=== PATIENT | male | born 1955 | race Caucasian/White ===

== ENCOUNTER 2019-07-21 15:15 | Outpatient (RCR) | payer OTHER, MEDICAID, SELFPAY ==
--- NOTE | 2019-03-18 17:01 | PT.OIE ---
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) Other peripheral vertigo, unspecified ear (03/18/19) Other disorders of vestibular function, left ear (03/18/19) Provider Visit Care Team Role Provider Type Meche Khoury DO Primary Care Provider Non-Staff Specialty: Medical Address: [address] [place] [address], [id number] Email: Paramjit Forrester MD Attending Provider Physician Specialty: Ear, Nose, Throat Address: [address] [place] [address], [id number] Email: Physical Therapy Initial Evaluation PT-OP-A Visit Information Start: 03/18/19 15:32 Freq: Status: Active Protocol: Document 03/18/19 14:30 DCW (Rec: 03/18/19 15:56 DCW [id number]) Out-Patient Physical Therapy Visit Information Visit Information Visit Type Initial Evaluation Visit Start Time 14:30 Visit Stop Time 15:25 Total Visit Minutes 55 Visit Number 1 Number of WEBSITE ADMIN Visits 0 Evaluation Information Evaluation Date 03/18/19 PT-OP-B Current Condition Start: 03/18/19 15:32 Freq: Status: Active Protocol: Document 03/18/19 14:30 DCW (Rec: 03/18/19 15:56 DCW [id number]) Current Condition History of Current Condition Onset Date 07/17/19 Current Complaints Imbalance, Visual instability History of Current Condition Pt is a 63 year old male complaining of an 8 month history of spontaneous vertigo and imbalance. Pt reports that on July 17, he was working on his van, and had a sudden onset of severe rotational vertigo lasting for two full days, including nausea and vomiting. Following this time, he reports the vertigo slowly faded, however now he is unstable, especially when his eye or closed or when he moves his head when he is walking. Pt also complains of oscillopsia when walking down the sidewalk. 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 Pt denies diplopia, dysarthria, discoordination, or decreased mentation/consciousness. Pt reports symptoms are not waxing/waning in nature. Pt denies hx of HTN, hyperlipidemia, diabetes, arrhythmia, seizure, migraines , back/neck problems, CVA, anxiety/panic disorders, depression, or excessive smoking or drinking. Treatment Goals Patient/Caregiver Goals Pt would like to be able to feel more stable when walking. Prior Functional Status Baseline Function- ADL's Independent Baseline Function- Mobility Independent Current Functional Impairments (Reported) Functional Limitations- Mobility/Gait Pt feels near-constant instability and difficulty focusing eyes when up walking around PT-OP-C Subjective Start: 03/18/19 15:32 Freq: Status: Active Protocol: Document 03/18/19 14:30 DCW (Rec: 03/18/19 15:56 DCW [id number]) Patient Questionnaires ABC- Activity Specific Balance Confidence Scale ABC Score 83.13% ABC Functional Impairment 1 to <20% Impaired (Score 81- 99) Dizziness Handicap Inventory DHI Score 64% DHI Functional Impairment 60 to 79% Impaired (Score 60- 79) PT-OP-D Balance Start: 03/18/19 15:32 Freq: Status: Active Protocol: Document 03/18/19 14:30 DCW (Rec: 03/18/19 15:56 DCW [id number]) Balance Tests CTSIB CTSIB Position 1 Mild Sway CTSIB Position 2 Moderate Sway CTSIB Position 3 Moderate Sway CTSIB Position 4 Mild Sway CTSIB Position 5 Moderate Sway CTSIB Position 6 Moderate Sway PT-OP-O Vestibular Start: 03/18/19 15:32 Freq: Status: Active Protocol: Document 03/18/19 14:30 DCW (Rec: 03/18/19 15:56 DCW [id number]) Vestibular Assessment Screening Tests Vestibular Artery Screen Negative Sharp-Denis Test Negative Auditory Tests Trevino Test Negative Rinne Test Negative Air Conduction Results Equal Visual Testing Smooth Pursuits Horizontal Negative Smooth Pursuits Vertical Negative Saccades Horizontal Negative Gaze Evoked Nystagmus With Fixation Negative Gaze Evoked Nystagmus Without Fixation Negative Heave Test Positive Left Thrust Head Positive Left Cristian String Test WNL Convergence Test WNL DVA (Line Degradation) 5 Head Shake +R Vestibular Function Tests Fukuda Test 45? rotation R CTSIB Position 1 Mild Sway CTSIB Position 2 Moderate Sway CTSIB Position 3 Moderate Sway CTSIB Position 4 Mild Sway CTSIB Position 5 Moderate Sway CTSIB Position 6 Moderate Sway PT-OP-Q Treatments Start: 03/18/19 15:32 Freq: Status: Active Protocol: Document 03/18/19 14:30 DCW (Rec: 03/18/19 17:01 DCW [id number]) Neuro Re-Education Treatment Vestibular Rehabilitation Corrective Saccades Distance From Target Arm length Comments deferred to next session secondary to nausea X2 Viewing Distance From Target Arm length Comments deferred to next session secondary to nausea X1 Viewing Distance From Target Arm length Speed as tolerated Position seated VOR Retraining Distance From Target Arm length Speed as tolerated Position seated PT-OP-T Assessment and Plan Start: 03/18/19 15:32 Freq: Status: Active Protocol: Document 03/18/19 14:30 DCW (Rec: 03/18/19 16:59 DCW [id number]) Physical Therapy Assessment Rehab Potential Rehabilitation Potential Good Evaluation Complexity Number of Personal Factors/Comorbidities 3 or More Number of Body Systems Impaired 3 Clinical Presentation at Evaluation Unstable Impairments Impairments Balance Vestibular Goals Four Impairment Pt has a five-line degradation on his Dynamic Visual Acuity Halfway Goal (LTG) Pt to have at most a three- line degradation on his DVA LTG Duration 05/18/19 Three Impairment Pt feels nauseated/dizzy due to bouncing while he is walking Workforce Management Coordinator Goal (LTG) Pt to ambulate 10 blocks without noticeable oscillopsia LTG Duration 05/18/19 Two Impairment Pt scored a 64% disability on the Dizziness Handicapped Inventory Workforce Management Coordinator Goal (LTG) Pt to score <40% disability on DHI LTG Duration 05/18/19 One Impairment Pt does not have an appropriate home exercise program Short Term Goal (STG) Pt to be independent and compliant with an appropriate HEP STG Duration 04/18/19 Assessment Summary Assessment Pt presents with signs and symptoms strongly suggestive of left vestibular neuritis. As he is already eight months out from the original incident, some compensation has already occured, however pt still clearly feels nauseated and imbalanced when performing his VOR and visual- motion exercises. Pt's positive Thrust/Heave, Head Shake, DVA, and Fukuda tests are all suggestive of left hypofunction, and his reports of the original incident are suggestive of either vestibular neuritis or labyrinthitis, however with no severe unilateral auditory loss, VN is more likely. Pt should benefit from vestibular therapy focusing on VOR training, balance training, habituation and adaptation training, and visual tracking exercises. Physical Therapy Plan Frequency and Duration Frequency of Treatment 2x/Week Duration of Treatment 8 weeks Plan of Care Start Date 03/18/19 Plan of Care End Date 05/13/19 Therapeutic Interventions Therapeutic Interventions Balance Training Vestibular Rehabilitation Next Visit Focus/Plan Next Note Type Treatment Note Next Visit Plan VOR training, Balance training , vestibular rehabilitation
--- NOTE | 2019-03-18 17:02 | PT.OPPOC ---
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) Other peripheral vertigo, unspecified ear (03/18/19) Other disorders of vestibular function, left ear (03/18/19) Provider Visit Care Team Role Provider Type Meche Khoury DO Primary Care Provider Non-Staff Specialty: Medical Address: [address] [place] [address], [id number] Email: Paramjit Forrester MD Attending Provider Physician Specialty: Ear, Nose, Throat Address: [address] [place] [address], [id number] Email: Plan Of Care PT-OP-T Assessment and Plan Start: 03/18/19 15:32 Freq: Status: Active Protocol: Document 03/18/19 14:30 DCW (Rec: 03/18/19 16:59 DCW [id number]) Physical Therapy Assessment Rehab Potential Rehabilitation Potential Good Evaluation Complexity Number of Personal Factors/Comorbidities 3 or More Number of Body Systems Impaired 3 Clinical Presentation at Evaluation Unstable Impairments Impairments Balance Vestibular Goals Four Impairment Pt has a five-line degradation on his Dynamic Visual Acuity Milking System Installer Goal (LTG) Pt to have at most a three- line degradation on his DVA LTG Duration 05/18/19 Three Impairment Pt feels nauseated/dizzy due to bouncing while he is walking Milking System Installer Goal (LTG) Pt to ambulate 10 blocks without noticeable oscillopsia LTG Duration 05/18/19 Two Impairment Pt scored a 64% disability on the Dizziness Handicapped Inventory Milking System Installer Goal (LTG) Pt to score <40% disability on DHI LTG Duration 05/18/19 One Impairment Pt does not have an appropriate home exercise program Short Term Goal (STG) Pt to be independent and compliant with an appropriate HEP STG Duration 04/18/19 Assessment Summary Assessment Pt presents with signs and symptoms strongly suggestive of left vestibular neuritis. As he is aloready eight months out from the original incident, some compensation has already occured, however pt still clearly feels nauseated and imbalanced when performing his VOR and visual- motion exercises. Pt's positive Thrust/Heave, Head Shake, DVA, and Fukuda tests are all suggestive of left hypofunction, and his reports of the original incident are suggestive of either vestibular neuritis or labyrinthitis, however with no severe unilateral auditory loss, VN is more likely. Pt should benefit from vestibular therapy focusing on VOR training, balance training, habituation and adaptation training, and visual tracking exercises. Physical Therapy Plan Frequency and Duration Frequency of Treatment 2x/Week Duration of Treatment 8 weeks Plan of Care Start Date 03/18/19 Plan of Care End Date 05/13/19 Therapeutic Interventions Therapeutic Interventions Balance Training Vestibular Rehabilitation Next Visit Focus/Plan Next Note Type Treatment Note Next Visit Plan VOR training, Balance training , vestibular rehabilitation Plan of Care Dates Plan of Care Start Date 03/18/19 Plan of Care End Date 05/13/19 Please Sign and Return: I have reviewed this Plan of Care and certify that the skilled therapy services above are required to meet the patient?s needs. Physician Signature Date Printed Name and Credentials Clinical Instructor Signature Printed Name and Credentials
--- NOTE | 2019-03-23 16:59 | PT.OTN ---
Current Diagnoses Other peripheral vertigo, unspecified ear (03/23/19) Physical Therapy Treatment Note PT-OP-A Visit Information Start: 03/18/19 15:32 Freq: Status: Active Protocol: Document 03/23/19 16:00 DCW (Rec: 03/23/19 16:59 DCW [id number]) Out-Patient Physical Therapy Visit Information Visit Information Visit Type Treatment Note Visit Start Time 16:00 Visit Stop Time 16:45 Total Visit Minutes 45 Visit Number 2 Number of SHOT HOLE SHOOTER Visits 0 Evaluation Information Evaluation Date 03/18/19 PT-OP-B Current Condition Start: 03/18/19 15:32 Freq: Status: Active Protocol: Document 03/18/19 14:30 DCW (Rec: 03/18/19 15:56 DCW [id number]) Current Condition History of Current Condition Onset Date 07/17/19 Current Complaints Imbalance, Visual instability History of Current Condition Pt is a 63 year old male complaining of an 8 month history of spontaneous vertigo and imbalance. Pt reports that on July 17, he was working on his van, and had a sudden onset of severe rotational vertigo lasting for two full days, including nausea and vomiting. Following this time, he reports the vertigo slowly faded, however now he is unstable, especially when his eye or closed or when he moves his head when he is walking. Pt also complains of oscillopsia when walking down the sidewalk. 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 Pt denies diplopia, dysarthria, discoordination, or decreased mentation/consciousness. Pt reports symptoms are not waxing/waning in nature. Pt denies hx of HTN, hyperlipidemia, diabetes, arrhythmia, seizure, migraines , back/neck problems, CVA, anxiety/panic disorders, depression, or excessive smoking or drinking. Treatment Goals Patient/Caregiver Goals Pt would like to be able to feel more stable when walking. Prior Functional Status Baseline Function- ADL's Independent Baseline Function- Mobility Independent Current Functional Impairments (Reported) Functional Limitations- Mobility/Gait Pt feels near-constant instability and difficulty focusing eyes when up walking around PT-OP-C Subjective Start: 03/18/19 15:32 Freq: Status: Active Protocol: Document 03/23/19 16:00 DCW (Rec: 03/23/19 16:59 DCW [id number]) OP-PT Subjective Patient Comments Patient Comments Pt reports he has been having a lot of difficulty performing his HEP, notes he gets very dizzy and nauseated with the X1 viewing. Pt is concerned that some of the dizziness may be coming from his cervical spine. PT-OP-D Balance Start: 03/18/19 15:32 Freq: Status: Active Protocol: Document 03/18/19 14:30 DCW (Rec: 03/18/19 15:56 DCW [id number]) Balance Tests CTSIB CTSIB Position 1 Mild Sway CTSIB Position 2 Moderate Sway CTSIB Position 3 Moderate Sway CTSIB Position 4 Mild Sway CTSIB Position 5 Moderate Sway CTSIB Position 6 Moderate Sway PT-OP-O Vestibular Start: 03/18/19 15:32 Freq: Status: Active Protocol: Document 03/18/19 14:30 DCW (Rec: 03/18/19 15:56 DCW [id number]) Vestibular Assessment Screening Tests Vestibular Artery Screen Negative Sharp-Denis Test Negative Auditory Tests Trevino Test Negative Rinne Test Negative Air Conduction Results Equal Visual Testing Smooth Pursuits Horizontal Negative Smooth Pursuits Vertical Negative Saccades Horizontal Negative Gaze Evoked Nystagmus With Fixation Negative Gaze Evoked Nystagmus Without Fixation Negative Heave Test Positive Left Thrust Head Positive Left Cristian String Test WNL Convergence Test WNL DVA (Line Degradation) 5 Head Shake +R Vestibular Function Tests Fukuda Test 45? rotation R CTSIB Position 1 Mild Sway CTSIB Position 2 Moderate Sway CTSIB Position 3 Moderate Sway CTSIB Position 4 Mild Sway CTSIB Position 5 Moderate Sway CTSIB Position 6 Moderate Sway PT-OP-Q Treatments Start: 03/18/19 15:32 Freq: Status: Active Protocol: Document 03/23/19 16:00 DCW (Rec: 03/23/19 16:59 DCW [id number]) Manual Therapy Treatment Soft Tissue Mobilization SCM Body Location B SCM Mobilization Type Myofascial Release Strumming Body Position Supine Suboccipitals Body Location B Suboccipitals Mobilization Type Strumming Sustained Pressure Body Position Supine Upper Trap Body Location B upper trap Mobilization Type Strain/Counterstrain Strumming Sustained Pressure Trigger Point Release Body Position Supine Joint Mobilizations Cervical Joint C3-7 Direction P->A Grade III Manual Traction Cervical Details Cervical Traction Body Position Supine Neuro Re-Education Treatment Other Activities 1 Details Cervicogenic testing Comments Stool testing, cervical ROM testing PT-OP-T Assessment and Plan Start: 03/18/19 15:32 Freq: Status: Active Protocol: Document 03/23/19 16:00 DCW (Rec: 03/23/19 16:59 DCW [id number]) Physical Therapy Assessment Impairments Impairments Balance Vestibular Goals Four Impairment Pt has a five-line degradation on his Dynamic Visual Acuity Jail Goal (LTG) Pt to have at most a three- line degradation on his DVA LTG Duration 05/18/19 Three Impairment Pt feels nauseated/dizzy due to bouncing while he is walking Jail Goal (LTG) Pt to ambulate 10 blocks without noticeable oscillopsia LTG Duration 05/18/19 Two Impairment Pt scored a 64% disability on the Dizziness Handicapped Inventory Jail Goal (LTG) Pt to score <40% disability on DHI LTG Duration 05/18/19 One Impairment Pt does not have an appropriate home exercise program Short Term Goal (STG) Pt to be independent and compliant with an appropriate HEP STG Duration 04/18/19 Assessment Summary Assessment Treatment focused more today on cervical STM/Manual treatment to try to determine effect of cervical dysfunction on pt's dizziness. Reassess effectiveness of treatment on pt's next visit. Physical Therapy Plan Frequency and Duration Frequency of Treatment 2x/Week Duration of Treatment 8 weeks Plan of Care Start Date 03/18/19 Plan of Care End Date 05/13/19 Therapeutic Interventions Therapeutic Interventions Balance Training Vestibular Rehabilitation Next Visit Focus/Plan Next Note Type Treatment Note Next Visit Plan VOR training, Balance training , vestibular rehabilitation, assess effectiveness of cervical manual treatment
--- NOTE | 2019-04-22 16:09 | PT.OTN ---
Current Diagnoses Other peripheral vertigo, unspecified ear (04/22/19) Physical Therapy Treatment Note PT-OP-A Visit Information Start: 03/18/19 15:32 Freq: Status: Active Protocol: Document 04/22/19 15:15 DCW (Rec: 04/22/19 16:09 DCW [id number]) Out-Patient Physical Therapy Visit Information Visit Information Visit Type Treatment Note Visit Start Time 15:15 Visit Stop Time 16:00 Total Visit Minutes 45 Visit Number 3 Number of DIGESTER OPERATOR Visits 0 Evaluation Information Evaluation Date 03/18/19 PT-OP-B Current Condition Start: 03/18/19 15:32 Freq: Status: Active Protocol: Document 03/18/19 14:30 DCW (Rec: 03/18/19 15:56 DCW [id number]) Current Condition History of Current Condition Onset Date 07/17/19 Current Complaints Imbalance, Visual instability History of Current Condition Pt is a 63 year old male complaining of an 8 month history of spontaneous vertigo and imbalance. Pt reports that on July 17, he was working on his van, and had a sudden onset of severe rotational vertigo lasting for two full days, including nausea and vomiting. Following this time, he reports the vertigo slowly faded, however now he is unstable, especially when his eye or closed or when he moves his head when he is walking. Pt also complains of oscillopsia when walking down the sidewalk. 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 Pt denies diplopia, dysarthria, discoordination, or decreased mentation/consciousness. Pt reports symptoms are not waxing/waning in nature. Pt denies hx of HTN, hyperlipidemia, diabetes, arrhythmia, seizure, migraines , back/neck problems, CVA, anxiety/panic disorders, depression, or excessive smoking or drinking. Treatment Goals Patient/Caregiver Goals Pt would like to be able to feel more stable when walking. 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 PT-OP-D Balance Start: 03/18/19 15:32 Freq: Status: Active Protocol: Document 03/18/19 14:30 DCW (Rec: 03/18/19 15:56 DCW [id number]) Balance Tests CTSIB CTSIB Position 1 Mild Sway CTSIB Position 2 Moderate Sway CTSIB Position 3 Moderate Sway CTSIB Position 4 Mild Sway CTSIB Position 5 Moderate Sway CTSIB Position 6 Moderate Sway PT-OP-O Vestibular Start: 03/18/19 15:32 Freq: Status: Active Protocol: Document 03/18/19 14:30 DCW (Rec: 03/18/19 15:56 DCW [id number]) Vestibular Assessment Screening Tests Vestibular Artery Screen Negative Sharp-Denis Test Negative Auditory Tests Trevino Test Negative Rinne Test Negative Air Conduction Results Equal Visual Testing Smooth Pursuits Horizontal Negative Smooth Pursuits Vertical Negative Saccades Horizontal Negative Gaze Evoked Nystagmus With Fixation Negative Gaze Evoked Nystagmus Without Fixation Negative Heave Test Positive Left Thrust Head Positive Left Cristian String Test WNL Convergence Test WNL DVA (Line Degradation) 5 Head Shake +R Vestibular Function Tests Fukuda Test 45? rotation R CTSIB Position 1 Mild Sway CTSIB Position 2 Moderate Sway CTSIB Position 3 Moderate Sway CTSIB Position 4 Mild Sway CTSIB Position 5 Moderate Sway CTSIB Position 6 Moderate Sway PT-OP-Q Treatments Start: 03/18/19 15:32 Freq: Status: Active Protocol: Document 04/22/19 15:15 DCW (Rec: 04/22/19 16:09 DCW [id number]) Manual Therapy Treatment Soft Tissue Mobilization SCM Body Location B SCM Mobilization Type Myofascial Release Strumming Body Position Supine Suboccipitals Body Location B Suboccipitals Mobilization Type Strumming Sustained Pressure Body Position Supine Upper Trap Body Location B upper trap Mobilization Type Strain/Counterstrain Strumming Sustained Pressure Trigger Point Release Body Position Supine Joint Mobilizations Cervical Joint C3-7 Direction P->A Grade III Manual Traction Cervical Details Cervical Traction Body Position Supine PT-OP-T Assessment and Plan Start: 03/18/19 15:32 Freq: Status: Active Protocol: Document 04/22/19 15:15 DCW (Rec: 04/22/19 16:09 DCW [id number]) Physical Therapy Assessment Impairments Impairments Balance Vestibular Goals Four Impairment Pt has a five-line degradation on his Dynamic Visual Acuity Legal Assistant Goal (LTG) Pt to have at most a three- line degradation on his DVA LTG Duration 05/18/19 Three Impairment Pt feels nauseated/dizzy due to bouncing while he is walking Legal Assistant Goal (LTG) Pt to ambulate 10 blocks without noticeable oscillopsia LTG Duration 05/18/19 Two Impairment Pt scored a 64% disability on the Dizziness Handicapped Inventory Custodial Goal (LTG) Pt to score <40% disability on DHI LTG Duration 05/18/19 One Impairment Pt does not have an appropriate home exercise program Short Term Goal (STG) Pt to be independent and compliant with an appropriate HEP STG Duration 04/18/19 Assessment Summary Assessment Pt reported feeling much better for 5-6 days following his last appointment, and therefore focus today was again on manual therapy of the cervical spine. Pt continues to have difficulty tolerating X1/X2 viewing without causing nausea. Physical Therapy Plan Frequency and Duration Frequency of Treatment 2x/Week Duration of Treatment 8 weeks Plan of Care Start Date 03/18/19 Plan of Care End Date 05/13/19 Therapeutic Interventions Therapeutic Interventions Balance Training Vestibular Rehabilitation Next Visit Focus/Plan Next Note Type Treatment Note Next Visit Plan VOR training, Balance training , vestibular rehabilitation, assess effectiveness of cervical manual treatment
--- NOTE | 2019-04-27 16:47 | PT.OTN ---
Current Diagnoses Other peripheral vertigo, unspecified ear (04/27/19) Physical Therapy Treatment Note PT-OP-A Visit Information Start: 03/18/19 15:32 Freq: Status: Active Protocol: Document 04/27/19 16:00 DCW (Rec: 04/27/19 16:46 DCW [id number]) Out-Patient Physical Therapy Visit Information Visit Information Visit Type Treatment Note Visit Start Time 16:00 Visit Stop Time 16:45 Total Visit Minutes 45 Visit Number 4 Number of GREENHOUSE SUPERINTENDENT Visits 0 Evaluation Information Evaluation Date 03/18/19 PT-OP-B Current Condition Start: 03/18/19 15:32 Freq: Status: Active Protocol: Document 03/18/19 14:30 DCW (Rec: 03/18/19 15:56 DCW [id number]) Current Condition History of Current Condition Onset Date 07/17/19 Current Complaints Imbalance, Visual instability History of Current Condition Pt is a 63 year old male complaining of an 8 month history of spontaneous vertigo and imbalance. Pt reports that on July 17, he was working on his van, and had a sudden onset of severe rotational vertigo lasting for two full days, including nausea and vomiting. Following this time, he reports the vertigo slowly faded, however now he is unstable, especially when his eye or closed or when he moves his head when he is walking. Pt also complains of oscillopsia when walking down the sidewalk. 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 Pt denies diplopia, dysarthria, discoordination, or decreased mentation/consciousness. Pt reports symptoms are not waxing/waning in nature. Pt denies hx of HTN, hyperlipidemia, diabetes, arrhythmia, seizure, migraines , back/neck problems, CVA, anxiety/panic disorders, depression, or excessive smoking or drinking. Treatment Goals Patient/Caregiver Goals Pt would like to be able to feel more stable when walking. Prior Functional Status Baseline Function- ADL's Independent Baseline Function- Mobility Independent Current Functional Impairments (Reported) Functional Limitations- Mobility/Gait Pt feels near-constant instability and difficulty focusing eyes when up walking around PT-OP-C Subjective Start: 03/18/19 15:32 Freq: Status: Active Protocol: Document 04/27/19 16:00 DCW (Rec: 04/27/19 16:46 DCW [id number]) OP-PT Subjective Patient Comments Patient Comments Pt reports that he did not feel as much benefit from the last session compared to the first time he had his neck worked on, but he did still notice some improvement. PT-OP-D Balance Start: 03/18/19 15:32 Freq: Status: Active Protocol: Document 03/18/19 14:30 DCW (Rec: 03/18/19 15:56 DCW [id number]) Balance Tests CTSIB CTSIB Position 1 Mild Sway CTSIB Position 2 Moderate Sway CTSIB Position 3 Moderate Sway CTSIB Position 4 Mild Sway CTSIB Position 5 Moderate Sway CTSIB Position 6 Moderate Sway PT-OP-O Vestibular Start: 03/18/19 15:32 Freq: Status: Active Protocol: Document 03/18/19 14:30 DCW (Rec: 03/18/19 15:56 DCW [id number]) Vestibular Assessment Screening Tests Vestibular Artery Screen Negative Sharp-Denis Test Negative Auditory Tests Trevino Test Negative Rinne Test Negative Air Conduction Results Equal Visual Testing Smooth Pursuits Horizontal Negative Smooth Pursuits Vertical Negative Saccades Horizontal Negative Gaze Evoked Nystagmus With Fixation Negative Gaze Evoked Nystagmus Without Fixation Negative Heave Test Positive Left Thrust Head Positive Left Cristian String Test WNL Convergence Test WNL DVA (Line Degradation) 5 Head Shake +R Vestibular Function Tests Fukuda Test 45? rotation R CTSIB Position 1 Mild Sway CTSIB Position 2 Moderate Sway CTSIB Position 3 Moderate Sway CTSIB Position 4 Mild Sway CTSIB Position 5 Moderate Sway CTSIB Position 6 Moderate Sway PT-OP-Q Treatments Start: 03/18/19 15:32 Freq: Status: Active Protocol: Document 04/27/19 16:00 DCW (Rec: 04/27/19 16:46 DCW [id number]) Manual Therapy Treatment Soft Tissue Mobilization SCM Body Location B SCM Mobilization Type Myofascial Release Strumming Body Position Supine Suboccipitals Body Location B Suboccipitals Mobilization Type Strumming Sustained Pressure Body Position Supine Upper Trap Body Location B upper trap Mobilization Type Strain/Counterstrain Strumming Sustained Pressure Trigger Point Release Body Position Supine Joint Mobilizations Cervical Joint C3-7 Direction P->A Grade III Manual Traction Cervical Details Cervical Traction Body Position Supine PT-OP-T Assessment and Plan Start: 03/18/19 15:32 Freq: Status: Active Protocol: Document 04/27/19 16:00 DCW (Rec: 04/27/19 16:46 DCW [id number]) Physical Therapy Assessment Impairments Impairments Balance Vestibular Goals Four Impairment Pt has a five-line degradation on his Dynamic Visual Acuity It Consultant Goal (LTG) Pt to have at most a three- line degradation on his DVA LTG Duration 05/18/19 Three Impairment Pt feels nauseated/dizzy due to bouncing while he is walking [facility] Goal (LTG) Pt to ambulate 10 blocks without noticeable oscillopsia LTG Duration 05/18/19 Two Impairment Pt scored a 64% disability on the Dizziness Handicapped Inventory It Consultant Goal (LTG) Pt to score <40% disability on DHI LTG Duration 05/18/19 One Impairment Pt does not have an appropriate home exercise program Short Term Goal (STG) Pt to be independent and compliant with an appropriate HEP STG Duration 04/18/19 Assessment Summary Assessment Pt still unable to tolerate X1 /X2 viewing due to nausea, but feels continued cervical STM will help him tolerate more activity. Physical Therapy Plan Frequency and Duration Frequency of Treatment 2x/Week Duration of Treatment 8 weeks Plan of Care Start Date 03/18/19 Plan of Care End Date 05/13/19 Therapeutic Interventions Therapeutic Interventions Balance Training Vestibular Rehabilitation Next Visit Focus/Plan Next Note Type Treatment Note Next Visit Plan VOR training, Balance training , vestibular rehabilitation, assess effectiveness of cervical manual treatment
--- NOTE | 2019-05-04 11:16 | PT.OTN ---
Current Diagnoses Other peripheral vertigo, unspecified ear (05/04/19) Physical Therapy Treatment Note PT-OP-A Visit Information Start: 03/18/19 15:32 Freq: Status: Active Protocol: Document 05/04/19 10:30 DCW (Rec: 05/04/19 11:16 DCW [id number]) Out-Patient Physical Therapy Visit Information Visit Information Visit Type Treatment Note Visit Start Time 10:30 Visit Stop Time 11:15 Total Visit Minutes 45 Visit Number 5 Number of MANAGER CENTER Visits 0 Evaluation Information Evaluation Date 03/18/19 PT-OP-B Current Condition Start: 03/18/19 15:32 Freq: Status: Active Protocol: Document 03/18/19 14:30 DCW (Rec: 03/18/19 15:56 DCW [id number]) Current Condition History of Current Condition Onset Date 07/17/19 Current Complaints Imbalance, Visual instability History of Current Condition Pt is a 63 year old male complaining of an 8 month history of spontaneous vertigo and imbalance. Pt reports that on July 17, he was working on his van, and had a sudden onset of severe rotational vertigo lasting for two full days, including nausea and vomiting. Following this time, he reports the vertigo slowly faded, however now he is unstable, especially when his eye or closed or when he moves his head when he is walking. Pt also complains of oscillopsia when walking down the sidewalk. 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 Pt denies diplopia, dysarthria, discoordination, or decreased mentation/consciousness. Pt reports symptoms are not waxing/waning in nature. Pt denies hx of HTN, hyperlipidemia, diabetes, arrhythmia, seizure, migraines , back/neck problems, CVA, anxiety/panic disorders, depression, or excessive smoking or drinking. Treatment Goals Patient/Caregiver Goals Pt would like to be able to feel more stable when walking. Prior Functional Status Baseline Function- ADL's Independent Baseline Function- Mobility Independent Current Functional Impairments (Reported) Functional Limitations- Mobility/Gait Pt feels near-constant instability and difficulty focusing eyes when up walking around PT-OP-C Subjective Start: 03/18/19 15:32 Freq: Status: Active Protocol: Document 05/04/19 10:30 DCW (Rec: 05/04/19 11:16 DCW [id number]) OP-PT Subjective Patient Comments Patient Comments Pt reports that the past few nights, he has been having some pain in his C1 or C2, I don't know which it is, but I think that's where my issues are coming from. PT-OP-D Balance Start: 03/18/19 15:32 Freq: Status: Active Protocol: Document 03/18/19 14:30 DCW (Rec: 03/18/19 15:56 DCW [id number]) Balance Tests CTSIB CTSIB Position 1 Mild Sway CTSIB Position 2 Moderate Sway CTSIB Position 3 Moderate Sway CTSIB Position 4 Mild Sway CTSIB Position 5 Moderate Sway CTSIB Position 6 Moderate Sway PT-OP-O Vestibular Start: 03/18/19 15:32 Freq: Status: Active Protocol: Document 03/18/19 14:30 DCW (Rec: 03/18/19 15:56 DCW [id number]) Vestibular Assessment Screening Tests Vestibular Artery Screen Negative Sharp-Denis Test Negative Auditory Tests Trevino Test Negative Rinne Test Negative Air Conduction Results Equal Visual Testing Smooth Pursuits Horizontal Negative Smooth Pursuits Vertical Negative Saccades Horizontal Negative Gaze Evoked Nystagmus With Fixation Negative Gaze Evoked Nystagmus Without Fixation Negative Heave Test Positive Left Thrust Head Positive Left Cristian String Test WNL Convergence Test WNL DVA (Line Degradation) 5 Head Shake +R Vestibular Function Tests Fukuda Test 45? rotation R CTSIB Position 1 Mild Sway CTSIB Position 2 Moderate Sway CTSIB Position 3 Moderate Sway CTSIB Position 4 Mild Sway CTSIB Position 5 Moderate Sway CTSIB Position 6 Moderate Sway PT-OP-Q Treatments Start: 03/18/19 15:32 Freq: Status: Active Protocol: Document 05/04/19 10:30 DCW (Rec: 05/04/19 11:16 DCW [id number]) Manual Therapy Treatment Soft Tissue Mobilization SCM Body Location B SCM Mobilization Type Myofascial Release Strumming Body Position Supine Suboccipitals Body Location B Suboccipitals Mobilization Type Strumming Sustained Pressure Body Position Supine Upper Trap Body Location B upper trap Mobilization Type Strain/Counterstrain Strumming Sustained Pressure Trigger Point Release Body Position Supine Joint Mobilizations C2 Rotation Joint C2 Direction Counterclockwise rotation Comments Resisted rotation Cervical Joint C3-7 Direction P->A Grade III Manual Traction Cervical Details Cervical Traction Body Position Supine PT-OP-T Assessment and Plan Start: 03/18/19 15:32 Freq: Status: Active Protocol: Document 05/04/19 10:30 DCW (Rec: 05/04/19 11:16 DCW [id number]) Physical Therapy Assessment Impairments Impairments Balance Vestibular Goals Four Impairment Pt has a five-line degradation on his Dynamic Visual Acuity Head Bone Grinder Goal (LTG) Pt to have at most a three- line degradation on his DVA LTG Duration 05/18/19 Three Impairment Pt feels nauseated/dizzy due to bouncing while he is walking Halfway Goal (LTG) Pt to ambulate 10 blocks without noticeable oscillopsia LTG Duration 05/18/19 Two Impairment Pt scored a 64% disability on the Dizziness Handicapped Inventory Head Bone Grinder Goal (LTG) Pt to score <40% disability on DHI LTG Duration 05/18/19 One Impairment Pt does not have an appropriate home exercise program Short Term Goal (STG) Pt to be independent and compliant with an appropriate HEP STG Duration 04/18/19 Assessment Summary Assessment Pt tolerated treatment well, appeared to respond well to rotation of C2. Physical Therapy Plan Frequency and Duration Frequency of Treatment 2x/Week Duration of Treatment 8 weeks Plan of Care Start Date 03/18/19 Plan of Care End Date 05/13/19 Therapeutic Interventions Therapeutic Interventions Balance Training Vestibular Rehabilitation Next Visit Focus/Plan Next Note Type Treatment Note Next Visit Plan VOR training, Balance training , vestibular rehabilitation, assess effectiveness of cervical manual treatment
--- NOTE | 2019-05-09 13:50 | PT.OTN ---
Current Diagnoses Other peripheral vertigo, unspecified ear (05/09/19) Physical Therapy Treatment Note PT-OP-A Visit Information Start: 03/18/19 15:32 Freq: Status: Active Protocol: Document 05/09/19 11:15 DCW (Rec: 05/09/19 13:50 DCW [id number]) Out-Patient Physical Therapy Visit Information Visit Information Visit Type Treatment Note Visit Start Time 11:15 Visit Stop Time 12:00 Total Visit Minutes 45 Visit Number 6 Number of MAINTENANCE PLUMBER Visits 0 Evaluation Information Evaluation Date 03/18/19 PT-OP-B Current Condition Start: 03/18/19 15:32 Freq: Status: Active Protocol: Document 03/18/19 14:30 DCW (Rec: 03/18/19 15:56 DCW [id number]) Current Condition History of Current Condition Onset Date 07/17/19 Current Complaints Imbalance, Visual instability History of Current Condition Pt is a 63 year old male complaining of an 8 month history of spontaneous vertigo and imbalance. Pt reports that on July 17, he was working on his van, and had a sudden onset of severe rotational vertigo lasting for two full days, including nausea and vomiting. Following this time, he reports the vertigo slowly faded, however now he is unstable, especially when his eye or closed or when he moves his head when he is walking. Pt also complains of oscillopsia when walking down the sidewalk. 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 Pt denies diplopia, dysarthria, discoordination, or decreased mentation/consciousness. Pt reports symptoms are not waxing/waning in nature. Pt denies hx of HTN, hyperlipidemia, diabetes, arrhythmia, seizure, migraines , back/neck problems, CVA, anxiety/panic disorders, depression, or excessive smoking or drinking. Treatment Goals Patient/Caregiver Goals Pt would like to be able to feel more stable when walking. Prior Functional Status Baseline Function- ADL's Independent Baseline Function- Mobility Independent Current Functional Impairments (Reported) Functional Limitations- Mobility/Gait Pt feels near-constant instability and difficulty focusing eyes when up walking around PT-OP-C Subjective Start: 03/18/19 15:32 Freq: Status: Active Protocol: Document 05/09/19 11:15 DCW (Rec: 05/09/19 13:50 DCW [id number]) OP-PT Subjective Patient Comments Patient Comments Pt presents today with complaints of pain in the T3 area, as well as continuing dizziness. PT-OP-D Balance Start: 03/18/19 15:32 Freq: Status: Active Protocol: Document 03/18/19 14:30 DCW (Rec: 03/18/19 15:56 DCW [id number]) Balance Tests CTSIB CTSIB Position 1 Mild Sway CTSIB Position 2 Moderate Sway CTSIB Position 3 Moderate Sway CTSIB Position 4 Mild Sway CTSIB Position 5 Moderate Sway CTSIB Position 6 Moderate Sway PT-OP-O Vestibular Start: 03/18/19 15:32 Freq: Status: Active Protocol: Document 03/18/19 14:30 DCW (Rec: 03/18/19 15:56 DCW [id number]) Vestibular Assessment Screening Tests Vestibular Artery Screen Negative Sharp-Denis Test Negative Auditory Tests Trevino Test Negative Rinne Test Negative Air Conduction Results Equal Visual Testing Smooth Pursuits Horizontal Negative Smooth Pursuits Vertical Negative Saccades Horizontal Negative Gaze Evoked Nystagmus With Fixation Negative Gaze Evoked Nystagmus Without Fixation Negative Heave Test Positive Left Thrust Head Positive Left Cristian String Test WNL Convergence Test WNL DVA (Line Degradation) 5 Head Shake +R Vestibular Function Tests Fukuda Test 45? rotation R CTSIB Position 1 Mild Sway CTSIB Position 2 Moderate Sway CTSIB Position 3 Moderate Sway CTSIB Position 4 Mild Sway CTSIB Position 5 Moderate Sway CTSIB Position 6 Moderate Sway PT-OP-Q Treatments Start: 03/18/19 15:32 Freq: Status: Active Protocol: Document 05/09/19 11:15 DCW (Rec: 05/09/19 13:50 DCW [id number]) Therapeutic Exercises Supine Exercises Supine chin tuck/head lift Supine Exercise Name Chin tuck/head lift Sitting Exercises Chin Tucks Sitting Exercise Name Chin tuck Upper Trap stretch Sitting Exercise Name UT stretch Side bilateral Manual Therapy Treatment Soft Tissue Mobilization SCM Body Location B SCM Mobilization Type Myofascial Release Strumming Body Position Supine Suboccipitals Body Location B Suboccipitals Mobilization Type Strumming Sustained Pressure Body Position Supine Upper Trap Body Location B upper trap Mobilization Type Strain/Counterstrain Strumming Sustained Pressure Trigger Point Release Body Position Supine Joint Mobilizations Cervical Joint C3-7 Direction P->A Grade III Manual Traction Cervical Details Cervical Traction Body Position Supine PT-OP-T Assessment and Plan Start: 03/18/19 15:32 Freq: Status: Active Protocol: Document 05/09/19 11:15 DCW (Rec: 05/09/19 13:50 DCW [id number]) Physical Therapy Assessment Impairments Impairments Balance Vestibular Goals Four Impairment Pt has a five-line degradation on his Dynamic Visual Acuity Purchase Request Editor Goal (LTG) Pt to have at most a three- line degradation on his DVA LTG Duration 05/18/19 Three Impairment Pt feels nauseated/dizzy due to bouncing while he is walking [facility] Goal (LTG) Pt to ambulate 10 blocks without noticeable oscillopsia LTG Duration 05/18/19 Two Impairment Pt scored a 64% disability on the Dizziness Handicapped Inventory [facility] Goal (LTG) Pt to score <40% disability on DHI LTG Duration 05/18/19 One Impairment Pt does not have an appropriate home exercise program Short Term Goal (STG) Pt to be independent and compliant with an appropriate HEP STG Duration 04/18/19 Assessment Summary Assessment Pt overall has not experienced much improvement in his subjective complaints of dizziness. Admits that he has not been following through with HEP, due to it making him feel sick. Physical Therapy Plan Frequency and Duration Frequency of Treatment 2x/Week Duration of Treatment 8 weeks Plan of Care Start Date 03/18/19 Plan of Care End Date 05/13/19 Therapeutic Interventions Therapeutic Interventions Balance Training Vestibular Rehabilitation Next Visit Focus/Plan Next Note Type Treatment Note Next Visit Plan VOR training, Balance training , vestibular rehabilitation, assess effectiveness of cervical manual treatment
--- NOTE | 2019-05-30 17:44 | PT.OTN ---
Current Diagnoses Other peripheral vertigo, unspecified ear (05/30/19) Physical Therapy Treatment Note PT-OP-A Visit Information Start: 03/18/19 15:32 Freq: Status: Active Protocol: Document 05/30/19 14:30 DCW (Rec: 05/30/19 17:44 DCW [id number]) Out-Patient Physical Therapy Visit Information Visit Information Visit Type Progress Note Visit Start Time 14:30 Visit Stop Time 15:15 Total Visit Minutes 45 Visit Number 7 Number of HOSPITAL CLERK Visits 0 Evaluation Information Evaluation Date 03/18/19 PT-OP-B Current Condition Start: 03/18/19 15:32 Freq: Status: Active Protocol: Document 03/18/19 14:30 DCW (Rec: 03/18/19 15:56 DCW [id number]) Current Condition History of Current Condition Onset Date 07/17/19 Current Complaints Imbalance, Visual instability History of Current Condition Pt is a 63 year old male complaining of an 8 month history of spontaneous vertigo and imbalance. Pt reports that on July 17, he was working on his van, and had a sudden onset of severe rotational vertigo lasting for two full days, including nausea and vomiting. Following this time, he reports the vertigo slowly faded, however now he is unstable, especially when his eye or closed or when he moves his head when he is walking. Pt also complains of oscillopsia when walking down the sidewalk. 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 Pt denies diplopia, dysarthria, discoordination, or decreased mentation/consciousness. Pt reports symptoms are not waxing/waning in nature. Pt denies hx of HTN, hyperlipidemia, diabetes, arrhythmia, seizure, migraines , back/neck problems, CVA, anxiety/panic disorders, depression, or excessive smoking or drinking. Treatment Goals Patient/Caregiver Goals Pt would like to be able to feel more stable when walking. Prior Functional Status Baseline Function- ADL's Independent Baseline Function- Mobility Independent Current Functional Impairments (Reported) Functional Limitations- Mobility/Gait Pt feels near-constant instability and difficulty focusing eyes when up walking around PT-OP-C Subjective Start: 03/18/19 15:32 Freq: Status: Active Protocol: Document 05/30/19 14:30 DCW (Rec: 05/30/19 17:44 DCW [id number]) OP-PT Subjective Patient Comments Patient Comments Pt reports he would like to discuss the possibility of a cardiac referral with his PCP, because he read that some dizziness and fatigue can be caused by cardiac issues. PT-OP-D Balance Start: 03/18/19 15:32 Freq: Status: Active Protocol: Document 05/30/19 14:30 DCW (Rec: 05/30/19 14:56 DCW [id number]) Balance Tests CTSIB CTSIB Position 1 Mild Sway CTSIB Position 2 Mild Sway CTSIB Position 3 Mild Sway CTSIB Position 4 Mild Sway CTSIB Position 5 Moderate Sway CTSIB Position 6 Mild Sway PT-OP-F Manual Assessment Start: 05/30/19 14:57 Freq: Status: Active Protocol: Document 05/30/19 14:30 DCW (Rec: 05/30/19 15:13 DCW [id number]) Manual Assessments Soft Tissue Assessment Soft Tissue Mobility Assessment Moderate tone along R upper trap and scalenes, bilateral suboccipitals Joint Mobility Assessment Joint Mobility Assessment Moderate limitations to cervical ROM, extension 32 degrees, rotation bilaterally 52 degrees Tenderness along C4 PT-OP-O Vestibular Start: 03/18/19 15:32 Freq: Status: Active Protocol: Document 05/30/19 14:30 DCW (Rec: 05/30/19 14:56 DCW [id number]) Vestibular Assessment Visual Testing Heave Test Positive Left Thrust Head Positive Left DVA (Line Degradation) 4 Vestibular Function Tests CTSIB Position 1 Mild Sway CTSIB Position 2 Mild Sway CTSIB Position 3 Mild Sway CTSIB Position 4 Mild Sway CTSIB Position 5 Moderate Sway CTSIB Position 6 Mild Sway PT-OP-Q Treatments Start: 03/18/19 15:32 Freq: Status: Active Protocol: Document 05/30/19 14:30 DCW (Rec: 05/30/19 17:44 DCW [id number]) Manual Therapy Treatment Soft Tissue Mobilization SCM Body Location B SCM Mobilization Type Myofascial Release Strumming Body Position Supine Suboccipitals Body Location B Suboccipitals Mobilization Type Strumming Sustained Pressure Body Position Supine Upper Trap Body Location B upper trap Mobilization Type Strain/Counterstrain Strumming Sustained Pressure Trigger Point Release Body Position Supine Joint Mobilizations Cervical Joint C3-7 Direction P->A Grade III Manual Traction Cervical Details Cervical Traction Body Position Supine Neuro Re-Education Treatment Other Activities 1 Comments Vestibular/Balance testing PT-OP-T Assessment and Plan Start: 03/18/19 15:32 Freq: Status: Active Protocol: Document 05/30/19 14:30 DCW (Rec: 05/30/19 17:44 DCW [id number]) Physical Therapy Assessment Impairments Impairments Balance Vestibular Goals Four Impairment Pt has a five-line degradation on his Dynamic Visual Acuity Data Officer Goal (LTG) Pt to have at most a three- line degradation on his DVA LTG Duration 07/31/19 - Improving Three Impairment Pt feels nauseated/dizzy due to bouncing while he is walking Snf Goal (LTG) Pt to ambulate 10 blocks without noticeable oscillopsia LTG Duration 07/31/19 Two Impairment Pt scored a 64% disability on the Dizziness Handicapped Inventory Data Officer Goal (LTG) Pt to score <40% disability on DHI LTG Duration 07/31/19 One Impairment Pt does not have an appropriate home exercise program Short Term Goal (STG) Pt to be independent and compliant with an appropriate HEP STG Duration 07/31/19 Assessment Summary Assessment Pt's progress is difficult to properly chart, as most of his symptoms are subjective in nature and are not apparent in testing for the most part. Pt does demonstrate improvement in positions II, III, and of the CTSIB, and now has a DVA of negative 4 lines instead of negative 3. Pt does appear to respond well following manual cervical treatment, which may suggest cervicogenic causes of his vertigo. Recommend one more renewal of his POC to continue to track progress. If pt plateau is noted, pt will likely then discharge at that time. Physical Therapy Plan Frequency and Duration Frequency of Treatment 2x/Week Duration of Treatment 8 weeks Plan of Care Start Date 05/30/19 Plan of Care End Date 07/25/19 Therapeutic Interventions Therapeutic Interventions Balance Training Manual Therapy Soft Tissue Mobilization Vestibular Rehabilitation Next Visit Focus/Plan Next Note Type Treatment Note Next Visit Plan VOR training, Balance training , vestibular rehabilitation, assess effectiveness of cervical manual treatment
--- NOTE | 2019-05-30 17:44 | PT.OPPOC ---
Current Diagnoses Other peripheral vertigo, unspecified ear (05/30/19) Provider Visit Care Team Role Provider Type Meche Khoury DO Primary Care Provider Non-Staff Specialty: Medical Address: [address] [place] [address], [id number] Email: Paramjit Forrester MD Attending Provider Physician Specialty: Ear, Nose, Throat Address: [address] [place] [address], [id number] Email: Plan Of Care PT-OP-T Assessment and Plan Start: 03/18/19 15:32 Freq: Status: Active Protocol: Document 05/30/19 14:30 DCW (Rec: 05/30/19 17:44 DCW [id number]) Physical Therapy Assessment Impairments Impairments Balance Vestibular Goals Four Impairment Pt has a five-line degradation on his Dynamic Visual Acuity Care Home Goal (LTG) Pt to have at most a three- line degradation on his DVA LTG Duration 07/31/19 - Improving Three Impairment Pt feels nauseated/dizzy due to bouncing while he is walking Care Home Goal (LTG) Pt to ambulate 10 blocks without noticeable oscillopsia LTG Duration 07/31/19 Two Impairment Pt scored a 64% disability on the Dizziness Handicapped Inventory Care Home Goal (LTG) Pt to score <40% disability on DHI LTG Duration 07/31/19 One Impairment Pt does not have an appropriate home exercise program Short Term Goal (STG) Pt to be independent and compliant with an appropriate HEP STG Duration 07/31/19 Assessment Summary Assessment Pt's progress is difficult to properly chart, as most of his symptoms are subjective in nature and are not apparent in testing for the most part. Pt does demonstrate improvement in positions II, III, and of the CTSIB, and now has a DVA of negative 4 lines instead of negative 3. Pt does appear to respond well following manual cervical treatment, which may suggest cervicogenic causes of his vertigo. Recommend one more renewal of his POC to continue to track progress. If pt plateau is noted, pt will likely then discharge at that time. Physical Therapy Plan Frequency and Duration Frequency of Treatment 2x/Week Duration of Treatment 8 weeks Plan of Care Start Date 05/30/19 Plan of Care End Date 07/25/19 Therapeutic Interventions Therapeutic Interventions Balance Training Manual Therapy Soft Tissue Mobilization Vestibular Rehabilitation Next Visit Focus/Plan Next Note Type Treatment Note Next Visit Plan VOR training, Balance training , vestibular rehabilitation, assess effectiveness of cervical manual treatment Plan of Care Dates Plan of Care Start Date 05/30/19 Plan of Care End Date 07/25/19 Please Sign and Return: I have reviewed this Plan of Care and certify that the skilled therapy services above are required to meet the patient?s needs. Physician Signature Date Printed Name and Credentials Clinical Instructor Signature Printed Name and Credentials
--- NOTE | 2019-06-24 12:45 | PT.OTN ---
Current Diagnoses Other peripheral vertigo, unspecified ear (06/24/19) Physical Therapy Treatment Note PT-OP-A Visit Information Start: 03/18/19 15:32 Freq: Status: Active Protocol: Document 06/24/19 12:00 DCW (Rec: 06/24/19 12:45 DCW [id number]) Out-Patient Physical Therapy Visit Information Visit Information Visit Type Treatment Note Visit Start Time 12:00 Visit Stop Time 12:45 Total Visit Minutes 45 Visit Number 8 Number of CHOKE REAMER Visits 0 Evaluation Information Evaluation Date 03/18/19 PT-OP-B Current Condition Start: 03/18/19 15:32 Freq: Status: Active Protocol: Document 03/18/19 14:30 DCW (Rec: 03/18/19 15:56 DCW [id number]) Current Condition History of Current Condition Onset Date 07/17/19 Current Complaints Imbalance, Visual instability History of Current Condition Pt is a 63 year old male complaining of an 8 month history of spontaneous vertigo and imbalance. Pt reports that on July 17, he was working on his van, and had a sudden onset of severe rotational vertigo lasting for two full days, including nausea and vomiting. Following this time, he reports the vertigo slowly faded, however now he is unstable, especially when his eye or closed or when he moves his head when he is walking. Pt also complains of oscillopsia when walking down the sidewalk. 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 Pt denies diplopia, dysarthria, discoordination, or decreased mentation/consciousness. Pt reports symptoms are not waxing/waning in nature. Pt denies hx of HTN, hyperlipidemia, diabetes, arrhythmia, seizure, migraines , back/neck problems, CVA, anxiety/panic disorders, depression, or excessive smoking or drinking. Treatment Goals Patient/Caregiver Goals Pt would like to be able to feel more stable when walking. Prior Functional Status Baseline Function- ADL's Independent Baseline Function- Mobility Independent Current Functional Impairments (Reported) Functional Limitations- Mobility/Gait Pt feels near-constant instability and difficulty focusing eyes when up walking around PT-OP-C Subjective Start: 03/18/19 15:32 Freq: Status: Active Protocol: Document 06/24/19 12:00 DCW (Rec: 06/24/19 12:45 DCW [id number]) OP-PT Subjective Patient Comments Patient Comments After cutting out coffee for a month, I've drank some the past three days, and it's really making my dizziness worse. PT-OP-D Balance Start: 03/18/19 15:32 Freq: Status: Active Protocol: Document 05/30/19 14:30 DCW (Rec: 05/30/19 14:56 DCW [id number]) Balance Tests CTSIB CTSIB Position 1 Mild Sway CTSIB Position 2 Mild Sway CTSIB Position 3 Mild Sway CTSIB Position 4 Mild Sway CTSIB Position 5 Moderate Sway CTSIB Position 6 Mild Sway PT-OP-F Manual Assessment Start: 05/30/19 14:57 Freq: Status: Active Protocol: Document 05/30/19 14:30 DCW (Rec: 05/30/19 15:13 DCW [id number]) Manual Assessments Soft Tissue Assessment Soft Tissue Mobility Assessment Moderate tone along R upper trap and scalenes, bilateral suboccipitals Joint Mobility Assessment Joint Mobility Assessment Moderate limitations to cervical ROM, extension 32 degrees, rotation bilaterally 52 degrees Tenderness along C4 PT-OP-O Vestibular Start: 03/18/19 15:32 Freq: Status: Active Protocol: Document 05/30/19 14:30 DCW (Rec: 05/30/19 14:56 DCW [id number]) Vestibular Assessment Visual Testing Heave Test Positive Left Thrust Head Positive Left DVA (Line Degradation) 4 Vestibular Function Tests CTSIB Position 1 Mild Sway CTSIB Position 2 Mild Sway CTSIB Position 3 Mild Sway CTSIB Position 4 Mild Sway CTSIB Position 5 Moderate Sway CTSIB Position 6 Mild Sway PT-OP-Q Treatments Start: 03/18/19 15:32 Freq: Status: Active Protocol: Document 06/24/19 12:00 DCW (Rec: 06/24/19 12:45 DCW [id number]) Manual Therapy Treatment Soft Tissue Mobilization SCM Body Location B SCM Mobilization Type Myofascial Release Strumming Body Position Supine Suboccipitals Body Location B Suboccipitals Mobilization Type Strumming Sustained Pressure Body Position Supine Upper Trap Body Location B upper trap Mobilization Type Strain/Counterstrain Strumming Sustained Pressure Trigger Point Release Body Position Supine Joint Mobilizations Cervical Joint C3-7 Direction P->A Grade III Manual Traction Cervical Details Cervical Traction Body Position Supine PT-OP-T Assessment and Plan Start: 03/18/19 15:32 Freq: Status: Active Protocol: Document 06/24/19 12:00 DCW (Rec: 06/24/19 12:45 DCW [id number]) Physical Therapy Assessment Impairments Impairments Balance Vestibular Goals Four Impairment Pt has a five-line degradation on his Dynamic Visual Acuity Cell Tuber Hand Goal (LTG) Pt to have at most a three- line degradation on his DVA LTG Duration 07/31/19 - Improving Three Impairment Pt feels nauseated/dizzy due to bouncing while he is walking Nursing Home Goal (LTG) Pt to ambulate 10 blocks without noticeable oscillopsia LTG Duration 07/31/19 Two Impairment Pt scored a 64% disability on the Dizziness Handicapped Inventory Cell Tuber Hand Goal (LTG) Pt to score <40% disability on DHI LTG Duration 07/31/19 One Impairment Pt does not have an appropriate home exercise program Short Term Goal (STG) Pt to be independent and compliant with an appropriate HEP STG Duration 07/31/19 Assessment Summary Assessment Pt continuing to benefit from manual therapy working to decrease paraspinal tone. Physical Therapy Plan Frequency and Duration Frequency of Treatment 2x/Week Duration of Treatment 8 weeks Plan of Care Start Date 05/30/19 Plan of Care End Date 07/25/19 Therapeutic Interventions Therapeutic Interventions Balance Training Manual Therapy Soft Tissue Mobilization Vestibular Rehabilitation Next Visit Focus/Plan Next Note Type Treatment Note Next Visit Plan VOR training, Balance training , vestibular rehabilitation, assess effectiveness of cervical manual treatment
--- NOTE | 2019-07-05 16:04 | PT.OTN ---
Current Diagnoses Other peripheral vertigo, unspecified ear (07/05/19) Physical Therapy Treatment Note PT-OP-A Visit Information Start: 03/18/19 15:32 Freq: Status: Active Protocol: Document 07/05/19 15:20 DCW (Rec: 07/05/19 16:03 DCW [id number]) Out-Patient Physical Therapy Visit Information Visit Information Visit Type Treatment Note Visit Start Time 15:20 Visit Stop Time 16:00 Total Visit Minutes 40 Visit Number 9 Number of TAP AND DIE MAKER TECHNICIAN Visits 0 Evaluation Information Evaluation Date 03/18/19 PT-OP-B Current Condition Start: 03/18/19 15:32 Freq: Status: Active Protocol: Document 03/18/19 14:30 DCW (Rec: 03/18/19 15:56 DCW [id number]) Current Condition History of Current Condition Onset Date 07/17/19 Current Complaints Imbalance, Visual instability History of Current Condition Pt is a 63 year old male complaining of an 8 month history of spontaneous vertigo and imbalance. Pt reports that on July 17, he was working on his van, and had a sudden onset of severe rotational vertigo lasting for two full days, including nausea and vomiting. Following this time, he reports the vertigo slowly faded, however now he is unstable, especially when his eye or closed or when he moves his head when he is walking. Pt also complains of oscillopsia when walking down the sidewalk. 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 Pt denies diplopia, dysarthria, discoordination, or decreased mentation/consciousness. Pt reports symptoms are not waxing/waning in nature. Pt denies hx of HTN, hyperlipidemia, diabetes, arrhythmia, seizure, migraines , back/neck problems, CVA, anxiety/panic disorders, depression, or excessive smoking or drinking. Treatment Goals Patient/Caregiver Goals Pt would like to be able to feel more stable when walking. Prior Functional Status Baseline Function- ADL's Independent Baseline Function- Mobility Independent Current Functional Impairments (Reported) Functional Limitations- Mobility/Gait Pt feels near-constant instability and difficulty focusing eyes when up walking around PT-OP-C Subjective Start: 03/18/19 15:32 Freq: Status: Active Protocol: Document 07/05/19 15:20 DCW (Rec: 07/05/19 16:03 DCW [id number]) OP-PT Subjective Patient Comments Patient Comments Pt notes he tweaked my back pretty food, but his neck has been doing well. PT-OP-D Balance Start: 03/18/19 15:32 Freq: Status: Active Protocol: Document 05/30/19 14:30 DCW (Rec: 05/30/19 14:56 DCW [id number]) Balance Tests CTSIB CTSIB Position 1 Mild Sway CTSIB Position 2 Mild Sway CTSIB Position 3 Mild Sway CTSIB Position 4 Mild Sway CTSIB Position 5 Moderate Sway CTSIB Position 6 Mild Sway PT-OP-F Manual Assessment Start: 05/30/19 14:57 Freq: Status: Active Protocol: Document 05/30/19 14:30 DCW (Rec: 05/30/19 15:13 DCW [id number]) Manual Assessments Soft Tissue Assessment Soft Tissue Mobility Assessment Moderate tone along R upper trap and scalenes, bilateral suboccipitals Joint Mobility Assessment Joint Mobility Assessment Moderate limitations to cervical ROM, extension 32 degrees, rotation bilaterally 52 degrees Tenderness along C4 PT-OP-O Vestibular Start: 03/18/19 15:32 Freq: Status: Active Protocol: Document 05/30/19 14:30 DCW (Rec: 05/30/19 14:56 DCW [id number]) Vestibular Assessment Visual Testing Heave Test Positive Left Thrust Head Positive Left DVA (Line Degradation) 4 Vestibular Function Tests CTSIB Position 1 Mild Sway CTSIB Position 2 Mild Sway CTSIB Position 3 Mild Sway CTSIB Position 4 Mild Sway CTSIB Position 5 Moderate Sway CTSIB Position 6 Mild Sway PT-OP-Q Treatments Start: 03/18/19 15:32 Freq: Status: Active Protocol: Document 07/05/19 15:20 DCW (Rec: 07/05/19 16:03 DCW [id number]) Manual Therapy Treatment Soft Tissue Mobilization SCM Body Location B SCM Mobilization Type Myofascial Release Strumming Body Position Supine Suboccipitals Body Location B Suboccipitals Mobilization Type Strumming Sustained Pressure Body Position Supine Upper Trap Body Location B upper trap Mobilization Type Strain/Counterstrain Strumming Sustained Pressure Trigger Point Release Body Position Supine Joint Mobilizations Cervical Joint C3-7 Direction P->A Grade III Manual Traction Cervical Details Cervical Traction Body Position Supine PT-OP-T Assessment and Plan Start: 03/18/19 15:32 Freq: Status: Active Protocol: Document 07/05/19 15:20 DCW (Rec: 07/05/19 16:03 DCW [id number]) Physical Therapy Assessment Impairments Impairments Balance Vestibular Goals Four Impairment Pt has a five-line degradation on his Dynamic Visual Acuity Detention Goal (LTG) Pt to have at most a three- line degradation on his DVA LTG Duration 07/31/19 - Improving Three Impairment Pt feels nauseated/dizzy due to bouncing while he is walking Concrete Foreman Goal (LTG) Pt to ambulate 10 blocks without noticeable oscillopsia LTG Duration 07/31/19 Two Impairment Pt scored a 64% disability on the Dizziness Handicapped Inventory Concrete Foreman Goal (LTG) Pt to score <40% disability on DHI LTG Duration 07/31/19 One Impairment Pt does not have an appropriate home exercise program Short Term Goal (STG) Pt to be independent and compliant with an appropriate HEP STG Duration 07/31/19 Assessment Summary Assessment Pt tolerated treatment well today, noticeable improvement with tone Physical Therapy Plan Frequency and Duration Frequency of Treatment 2x/Week Duration of Treatment 8 weeks Plan of Care Start Date 05/30/19 Plan of Care End Date 07/25/19 Therapeutic Interventions Therapeutic Interventions Balance Training Manual Therapy Soft Tissue Mobilization Vestibular Rehabilitation Next Visit Focus/Plan Next Note Type Treatment Note Next Visit Plan VOR training, Balance training , vestibular rehabilitation, assess effectiveness of cervical manual treatment
--- NOTE | 2019-07-07 15:56 | PT.OTN ---
Current Diagnoses Other peripheral vertigo, unspecified ear (07/07/19) Physical Therapy Treatment Note PT-OP-A Visit Information Start: 03/18/19 15:32 Freq: Status: Active Protocol: Document 07/07/19 15:15 DCW (Rec: 07/07/19 15:56 DCW [id number]) Out-Patient Physical Therapy Visit Information Visit Information Visit Type Treatment Note Visit Start Time 15:15 Visit Stop Time 15:55 Total Visit Minutes 40 Visit Number 10 Number of CLINICAL ORTHOPTIST Visits 0 Evaluation Information Evaluation Date 03/18/19 PT-OP-B Current Condition Start: 03/18/19 15:32 Freq: Status: Active Protocol: Document 03/18/19 14:30 DCW (Rec: 03/18/19 15:56 DCW [id number]) Current Condition History of Current Condition Onset Date 07/17/19 Current Complaints Imbalance, Visual instability History of Current Condition Pt is a 63 year old male complaining of an 8 month history of spontaneous vertigo and imbalance. Pt reports that on July 17, he was working on his van, and had a sudden onset of severe rotational vertigo lasting for two full days, including nausea and vomiting. Following this time, he reports the vertigo slowly faded, however now he is unstable, especially when his eye or closed or when he moves his head when he is walking. Pt also complains of oscillopsia when walking down the sidewalk. 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 Pt denies diplopia, dysarthria, discoordination, or decreased mentation/consciousness. Pt reports symptoms are not waxing/waning in nature. Pt denies hx of HTN, hyperlipidemia, diabetes, arrhythmia, seizure, migraines , back/neck problems, CVA, anxiety/panic disorders, depression, or excessive smoking or drinking. Treatment Goals Patient/Caregiver Goals Pt would like to be able to feel more stable when walking. Prior Functional Status Baseline Function- ADL's Independent Baseline Function- Mobility Independent Current Functional Impairments (Reported) Functional Limitations- Mobility/Gait Pt feels near-constant instability and difficulty focusing eyes when up walking around PT-OP-C Subjective Start: 03/18/19 15:32 Freq: Status: Active Protocol: Document 07/07/19 15:15 DCW (Rec: 07/07/19 15:56 DCW [id number]) OP-PT Subjective Patient Comments Patient Comments I'll have to knock-off five minutes early, I have a signing at 4:00 PT-OP-D Balance Start: 03/18/19 15:32 Freq: Status: Active Protocol: Document 05/30/19 14:30 DCW (Rec: 05/30/19 14:56 DCW [id number]) Balance Tests CTSIB CTSIB Position 1 Mild Sway CTSIB Position 2 Mild Sway CTSIB Position 3 Mild Sway CTSIB Position 4 Mild Sway CTSIB Position 5 Moderate Sway CTSIB Position 6 Mild Sway PT-OP-F Manual Assessment Start: 05/30/19 14:57 Freq: Status: Active Protocol: Document 05/30/19 14:30 DCW (Rec: 05/30/19 15:13 DCW [id number]) Manual Assessments Soft Tissue Assessment Soft Tissue Mobility Assessment Moderate tone along R upper trap and scalenes, bilateral suboccipitals Joint Mobility Assessment Joint Mobility Assessment Moderate limitations to cervical ROM, extension 32 degrees, rotation bilaterally 52 degrees Tenderness along C4 PT-OP-O Vestibular Start: 03/18/19 15:32 Freq: Status: Active Protocol: Document 05/30/19 14:30 DCW (Rec: 05/30/19 14:56 DCW [id number]) Vestibular Assessment Visual Testing Heave Test Positive Left Thrust Head Positive Left DVA (Line Degradation) 4 Vestibular Function Tests CTSIB Position 1 Mild Sway CTSIB Position 2 Mild Sway CTSIB Position 3 Mild Sway CTSIB Position 4 Mild Sway CTSIB Position 5 Moderate Sway CTSIB Position 6 Mild Sway PT-OP-Q Treatments Start: 03/18/19 15:32 Freq: Status: Active Protocol: Document 07/07/19 15:15 DCW (Rec: 07/07/19 15:56 DCW [id number]) Manual Therapy Treatment Soft Tissue Mobilization SCM Body Location B SCM Mobilization Type Myofascial Release Strumming Body Position Supine Suboccipitals Body Location B Suboccipitals Mobilization Type Strumming Sustained Pressure Body Position Supine Upper Trap Body Location B upper trap Mobilization Type Strain/Counterstrain Strumming Sustained Pressure Trigger Point Release Body Position Supine Joint Mobilizations Cervical Joint C3-7 Direction P->A Grade III Manual Traction Cervical Details Cervical Traction Body Position Supine PT-OP-T Assessment and Plan Start: 03/18/19 15:32 Freq: Status: Active Protocol: Document 07/07/19 15:15 DCW (Rec: 07/07/19 15:56 DCW [id number]) Physical Therapy Assessment Impairments Impairments Balance Vestibular Goals Four Impairment Pt has a five-line degradation on his Dynamic Visual Acuity Mcfp Goal (LTG) Pt to have at most a three- line degradation on his DVA LTG Duration 07/31/19 - Improving Three Impairment Pt feels nauseated/dizzy due to bouncing while he is walking Mcfp Goal (LTG) Pt to ambulate 10 blocks without noticeable oscillopsia LTG Duration 07/31/19 Two Impairment Pt scored a 64% disability on the Dizziness Handicapped Inventory Mcfp Goal (LTG) Pt to score <40% disability on DHI LTG Duration 07/31/19 One Impairment Pt does not have an appropriate home exercise program Short Term Goal (STG) Pt to be independent and compliant with an appropriate HEP STG Duration 07/31/19 Assessment Summary Assessment Pt spine shows improvement with mobility of vertebrae with P->A mobilization Physical Therapy Plan Frequency and Duration Frequency of Treatment 2x/Week Duration of Treatment 8 weeks Plan of Care Start Date 05/30/19 Plan of Care End Date 07/25/19 Therapeutic Interventions Therapeutic Interventions Balance Training Manual Therapy Soft Tissue Mobilization Vestibular Rehabilitation Next Visit Focus/Plan Next Note Type Treatment Note Next Visit Plan VOR training, Balance training , vestibular rehabilitation, assess effectiveness of cervical manual treatment
--- NOTE | 2019-07-12 17:34 | PT.OTN ---
Current Diagnoses Other peripheral vertigo, unspecified ear (07/12/19) Physical Therapy Treatment Note PT-OP-A Visit Information Start: 03/18/19 15:32 Freq: Status: Active Protocol: Document 07/12/19 15:15 DCW (Rec: 07/12/19 17:34 DCW [id number]) Out-Patient Physical Therapy Visit Information Visit Information Visit Type Treatment Note Visit Start Time 15:15 Visit Stop Time 16:00 Total Visit Minutes 45 Visit Number 11 Number of CREDIT AUTHORIZER Visits 0 Evaluation Information Evaluation Date 03/18/19 PT-OP-B Current Condition Start: 03/18/19 15:32 Freq: Status: Active Protocol: Document 03/18/19 14:30 DCW (Rec: 03/18/19 15:56 DCW [id number]) Current Condition History of Current Condition Onset Date 07/17/19 Current Complaints Imbalance, Visual instability History of Current Condition Pt is a 63 year old male complaining of an 8 month history of spontaneous vertigo and imbalance. Pt reports that on July 17, he was working on his van, and had a sudden onset of severe rotational vertigo lasting for two full days, including nausea and vomiting. Following this time, he reports the vertigo slowly faded, however now he is unstable, especially when his eye or closed or when he moves his head when he is walking. Pt also complains of oscillopsia when walking down the sidewalk. 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 Pt denies diplopia, dysarthria, discoordination, or decreased mentation/consciousness. Pt reports symptoms are not waxing/waning in nature. Pt denies hx of HTN, hyperlipidemia, diabetes, arrhythmia, seizure, migraines , back/neck problems, CVA, anxiety/panic disorders, depression, or excessive smoking or drinking. Treatment Goals Patient/Caregiver Goals Pt would like to be able to feel more stable when walking. Prior Functional Status Baseline Function- ADL's Independent Baseline Function- Mobility Independent Current Functional Impairments (Reported) Functional Limitations- Mobility/Gait Pt feels near-constant instability and difficulty focusing eyes when up walking around PT-OP-C Subjective Start: 03/18/19 15:32 Freq: Status: Active Protocol: Document 07/12/19 15:15 DCW (Rec: 07/12/19 17:34 DCW [id number]) OP-PT Subjective Patient Comments Patient Comments My mid back seems to have really tightened up over the past week, and its really causing my neck to tighten up, and that's just really making me feeleven more off-balance than normal. PT-OP-D Balance Start: 03/18/19 15:32 Freq: Status: Active Protocol: Document 05/30/19 14:30 DCW (Rec: 05/30/19 14:56 DCW [id number]) Balance Tests CTSIB CTSIB Position 1 Mild Sway CTSIB Position 2 Mild Sway CTSIB Position 3 Mild Sway CTSIB Position 4 Mild Sway CTSIB Position 5 Moderate Sway CTSIB Position 6 Mild Sway PT-OP-F Manual Assessment Start: 05/30/19 14:57 Freq: Status: Active Protocol: Document 05/30/19 14:30 DCW (Rec: 05/30/19 15:13 DCW [id number]) Manual Assessments Soft Tissue Assessment Soft Tissue Mobility Assessment Moderate tone along R upper trap and scalenes, bilateral suboccipitals Joint Mobility Assessment Joint Mobility Assessment Moderate limitations to cervical ROM, extension 32 degrees, rotation bilaterally 52 degrees Tenderness along C4 PT-OP-O Vestibular Start: 03/18/19 15:32 Freq: Status: Active Protocol: Document 05/30/19 14:30 DCW (Rec: 05/30/19 14:56 DCW [id number]) Vestibular Assessment Visual Testing Heave Test Positive Left Thrust Head Positive Left DVA (Line Degradation) 4 Vestibular Function Tests CTSIB Position 1 Mild Sway CTSIB Position 2 Mild Sway CTSIB Position 3 Mild Sway CTSIB Position 4 Mild Sway CTSIB Position 5 Moderate Sway CTSIB Position 6 Mild Sway PT-OP-Q Treatments Start: 03/18/19 15:32 Freq: Status: Active Protocol: Document 07/12/19 15:15 DCW (Rec: 07/12/19 17:34 DCW [id number]) Manual Therapy Treatment Soft Tissue Mobilization Paraspinals Body Location C/T Paraspinals Mobilization Type Strumming Sustained Pressure Trigger Point Release Intensity/Depth Moderate Body Position Sitting Rhombiods Body Location B Romboids Mobilization Type Strumming Sustained Pressure Trigger Point Release Body Position Sitting SCM Body Location B SCM Mobilization Type Myofascial Release Strumming Body Position Supine Suboccipitals Body Location B Suboccipitals Mobilization Type Strumming Sustained Pressure Body Position Supine Upper Trap Body Location B upper trap Mobilization Type Strain/Counterstrain Strumming Sustained Pressure Trigger Point Release Body Position Supine Joint Mobilizations Cervical Joint C3-7 Direction P->A Grade III Manual Traction Cervical Details Cervical Traction Body Position Supine PT-OP-T Assessment and Plan Start: 03/18/19 15:32 Freq: Status: Active Protocol: Document 07/12/19 15:15 DCW (Rec: 07/12/19 17:34 DCW [id number]) Physical Therapy Assessment Impairments Impairments Balance Vestibular Goals Four Impairment Pt has a five-line degradation on his Dynamic Visual Acuity Precision Devices Inspector/Tester Goal (LTG) Pt to have at most a three- line degradation on his DVA LTG Duration 07/31/19 - Improving Three Impairment Pt feels nauseated/dizzy due to bouncing while he is walking Precision Devices Inspector/Tester Goal (LTG) Pt to ambulate 10 blocks without noticeable oscillopsia LTG Duration 07/31/19 Two Impairment Pt scored a 64% disability on the Dizziness Handicapped Inventory Detention Goal (LTG) Pt to score <40% disability on DHI LTG Duration 07/31/19 One Impairment Pt does not have an appropriate home exercise program Short Term Goal (STG) Pt to be independent and compliant with an appropriate HEP STG Duration 07/31/19 Assessment Summary Assessment Pt seems to have suffered a setback, with his paraspinals increasing in tone, which has increased his feeling of imbalance. Physical Therapy Plan Frequency and Duration Frequency of Treatment 2x/Week Duration of Treatment 8 weeks Plan of Care Start Date 05/30/19 Plan of Care End Date 07/25/19 Therapeutic Interventions Therapeutic Interventions Balance Training Manual Therapy Soft Tissue Mobilization Vestibular Rehabilitation Next Visit Focus/Plan Next Note Type Treatment Note Next Visit Plan VOR training, Balance training , vestibular rehabilitation, assess effectiveness of cervical manual treatment
--- NOTE | 2019-07-14 15:16 | PT.OTN ---
Current Diagnoses Other peripheral vertigo, unspecified ear (07/14/19) Physical Therapy Treatment Note PT-OP-A Visit Information Start: 03/18/19 15:32 Freq: Status: Active Protocol: Document 07/14/19 14:30 DCW (Rec: 07/14/19 15:16 DCW [id number]) Out-Patient Physical Therapy Visit Information Visit Information Visit Type Treatment Note Visit Start Time 14:30 Visit Stop Time 15:15 Total Visit Minutes 45 Visit Number 12 Number of HIMS MANAGER Visits 0 Evaluation Information Evaluation Date 03/18/19 PT-OP-B Current Condition Start: 03/18/19 15:32 Freq: Status: Active Protocol: Document 03/18/19 14:30 DCW (Rec: 03/18/19 15:56 DCW [id number]) Current Condition History of Current Condition Onset Date 07/17/19 Current Complaints Imbalance, Visual instability History of Current Condition Pt is a 63 year old male complaining of an 8 month history of spontaneous vertigo and imbalance. Pt reports that on July 17, he was working on his van, and had a sudden onset of severe rotational vertigo lasting for two full days, including nausea and vomiting. Following this time, he reports the vertigo slowly faded, however now he is unstable, especially when his eye or closed or when he moves his head when he is walking. Pt also complains of oscillopsia when walking down the sidewalk. 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 Pt denies diplopia, dysarthria, discoordination, or decreased mentation/consciousness. Pt reports symptoms are not waxing/waning in nature. Pt denies hx of HTN, hyperlipidemia, diabetes, arrhythmia, seizure, migraines , back/neck problems, CVA, anxiety/panic disorders, depression, or excessive smoking or drinking. Treatment Goals Patient/Caregiver Goals Pt would like to be able to feel more stable when walking. Prior Functional Status Baseline Function- ADL's Independent Baseline Function- Mobility Independent Current Functional Impairments (Reported) Functional Limitations- Mobility/Gait Pt feels near-constant instability and difficulty focusing eyes when up walking around PT-OP-C Subjective Start: 03/18/19 15:32 Freq: Status: Active Protocol: Document 07/14/19 14:30 DCW (Rec: 07/14/19 15:16 DCW [id number]) OP-PT Subjective Patient Comments Patient Comments When I left last time, I really didn't think it had done any good, but it really did seem to be better afterward, and I've been sleeping pretty well the past few nights. PT-OP-D Balance Start: 03/18/19 15:32 Freq: Status: Active Protocol: Document 05/30/19 14:30 DCW (Rec: 05/30/19 14:56 DCW [id number]) Balance Tests CTSIB CTSIB Position 1 Mild Sway CTSIB Position 2 Mild Sway CTSIB Position 3 Mild Sway CTSIB Position 4 Mild Sway CTSIB Position 5 Moderate Sway CTSIB Position 6 Mild Sway PT-OP-F Manual Assessment Start: 05/30/19 14:57 Freq: Status: Active Protocol: Document 05/30/19 14:30 DCW (Rec: 05/30/19 15:13 DCW [id number]) Manual Assessments Soft Tissue Assessment Soft Tissue Mobility Assessment Moderate tone along R upper trap and scalenes, bilateral suboccipitals Joint Mobility Assessment Joint Mobility Assessment Moderate limitations to cervical ROM, extension 32 degrees, rotation bilaterally 52 degrees Tenderness along C4 PT-OP-O Vestibular Start: 03/18/19 15:32 Freq: Status: Active Protocol: Document 05/30/19 14:30 DCW (Rec: 05/30/19 14:56 DCW [id number]) Vestibular Assessment Visual Testing Heave Test Positive Left Thrust Head Positive Left DVA (Line Degradation) 4 Vestibular Function Tests CTSIB Position 1 Mild Sway CTSIB Position 2 Mild Sway CTSIB Position 3 Mild Sway CTSIB Position 4 Mild Sway CTSIB Position 5 Moderate Sway CTSIB Position 6 Mild Sway PT-OP-Q Treatments Start: 03/18/19 15:32 Freq: Status: Active Protocol: Document 07/14/19 14:30 DCW (Rec: 07/14/19 15:16 DCW [id number]) Manual Therapy Treatment Soft Tissue Mobilization Paraspinals Body Location Cervical Paraspinals Mobilization Type Strumming,Sustained Pressure, Trigger Point Release Intensity/Depth Moderate Body Position Sitting Rhombiods Body Location B Romboids Mobilization Type Strumming,Sustained Pressure, Trigger Point Release Body Position Sitting SCM Body Location B SCM Mobilization Type Myofascial Release,Strumming Body Position Supine Suboccipitals Body Location B Suboccipitals Mobilization Type Strumming,Sustained Pressure Body Position Supine Upper Trap Body Location B upper trap Mobilization Type Strain/Counterstrain,Strumming ,Sustained Pressure,Trigger Point Release Body Position Supine Joint Mobilizations Cervical Joint C3-7 Direction P->A Grade III Manual Traction Cervical Details Cervical Traction Body Position Supine PT-OP-T Assessment and Plan Start: 03/18/19 15:32 Freq: Status: Active Protocol: Document 07/14/19 14:30 DCW (Rec: 07/14/19 15:16 DCW [id number]) Physical Therapy Assessment Impairments Impairments Balance,Vestibular Goals Four Impairment Pt has a five-line degradation on his Dynamic Visual Acuity Booking Supervisor Goal (LTG) Pt to have at most a three- line degradation on his DVA LTG Duration 07/31/19 - Improving Three Impairment Pt feels nauseated/dizzy due to bouncing while he is walking Booking Supervisor Goal (LTG) Pt to ambulate 10 blocks without noticeable oscillopsia LTG Duration 07/31/19 Two Impairment Pt scored a 64% disability on the Dizziness Handicapped Inventory Senior Living Goal (LTG) Pt to score <40% disability on DHI LTG Duration 07/31/19 One Impairment Pt does not have an appropriate home exercise program Short Term Goal (STG) Pt to be independent and compliant with an appropriate HEP STG Duration 07/31/19 Assessment Summary Assessment Pt having some overall improvement, but still has difficulty with visual motion exercises. Physical Therapy Plan Frequency and Duration Frequency of Treatment 2x/Week Duration of Treatment 8 weeks Plan of Care Start Date 05/30/19 Plan of Care End Date 07/25/19 Therapeutic Interventions Therapeutic Interventions Balance Training,Manual Therapy,Soft Tissue Mobilization,Vestibular Rehabilitation Next Visit Focus/Plan Next Note Type Treatment Note Next Visit Plan VOR training, Balance training , vestibular rehabilitation, assess effectiveness of cervical manual treatment
--- NOTE | 2019-07-19 15:59 | PT.OTN ---
Current Diagnoses Other peripheral vertigo, unspecified ear (07/19/19) Physical Therapy Treatment Note PT-OP-A Visit Information Start: 03/18/19 15:32 Freq: Status: Active Protocol: Document 07/19/19 15:15 DCW (Rec: 07/19/19 15:59 DCW [id number]) Out-Patient Physical Therapy Visit Information Visit Information Visit Type Treatment Note Visit Start Time 15:15 Visit Stop Time 16:00 Total Visit Minutes 45 Visit Number 13 Number of FLOSSER Visits 0 Evaluation Information Evaluation Date 03/18/19 PT-OP-B Current Condition Start: 03/18/19 15:32 Freq: Status: Active Protocol: Document 03/18/19 14:30 DCW (Rec: 03/18/19 15:56 DCW [id number]) Current Condition History of Current Condition Onset Date 07/17/19 Current Complaints Imbalance, Visual instability History of Current Condition Pt is a 63 year old male complaining of an 8 month history of spontaneous vertigo and imbalance. Pt reports that on July 17, he was working on his van, and had a sudden onset of severe rotational vertigo lasting for two full days, including nausea and vomiting. Following this time, he reports the vertigo slowly faded, however now he is unstable, especially when his eye or closed or when he moves his head when he is walking. Pt also complains of oscillopsia when walking down the sidewalk. 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 Pt denies diplopia, dysarthria, discoordination, or decreased mentation/consciousness. Pt reports symptoms are not waxing/waning in nature. Pt denies hx of HTN, hyperlipidemia, diabetes, arrhythmia, seizure, migraines , back/neck problems, CVA, anxiety/panic disorders, depression, or excessive smoking or drinking. Treatment Goals Patient/Caregiver Goals Pt would like to be able to feel more stable when walking. Prior Functional Status Baseline Function- ADL's Independent Baseline Function- Mobility Independent Current Functional Impairments (Reported) Functional Limitations- Mobility/Gait Pt feels near-constant instability and difficulty focusing eyes when up walking around PT-OP-C Subjective Start: 03/18/19 15:32 Freq: Status: Active Protocol: Document 07/19/19 15:15 DCW (Rec: 07/19/19 15:59 DCW [id number]) OP-PT Subjective Patient Comments Patient Comments Pt notes he is moving much more easily today that what he has been the past few weeks. PT-OP-D Balance Start: 03/18/19 15:32 Freq: Status: Active Protocol: Document 05/30/19 14:30 DCW (Rec: 05/30/19 14:56 DCW [id number]) Balance Tests CTSIB CTSIB Position 1 Mild Sway CTSIB Position 2 Mild Sway CTSIB Position 3 Mild Sway CTSIB Position 4 Mild Sway CTSIB Position 5 Moderate Sway CTSIB Position 6 Mild Sway PT-OP-F Manual Assessment Start: 05/30/19 14:57 Freq: Status: Active Protocol: Document 05/30/19 14:30 DCW (Rec: 05/30/19 15:13 DCW [id number]) Manual Assessments Soft Tissue Assessment Soft Tissue Mobility Assessment Moderate tone along R upper trap and scalenes, bilateral suboccipitals Joint Mobility Assessment Joint Mobility Assessment Moderate limitations to cervical ROM, extension 32 degrees, rotation bilaterally 52 degrees Tenderness along C4 PT-OP-O Vestibular Start: 03/18/19 15:32 Freq: Status: Active Protocol: Document 05/30/19 14:30 DCW (Rec: 05/30/19 14:56 DCW [id number]) Vestibular Assessment Visual Testing Heave Test Positive Left Thrust Head Positive Left DVA (Line Degradation) 4 Vestibular Function Tests CTSIB Position 1 Mild Sway CTSIB Position 2 Mild Sway CTSIB Position 3 Mild Sway CTSIB Position 4 Mild Sway CTSIB Position 5 Moderate Sway CTSIB Position 6 Mild Sway PT-OP-Q Treatments Start: 03/18/19 15:32 Freq: Status: Active Protocol: Document 07/19/19 15:15 DCW (Rec: 07/19/19 15:59 DCW [id number]) Manual Therapy Treatment Soft Tissue Mobilization Paraspinals Body Location Cervical Paraspinals Mobilization Type Strumming,Sustained Pressure, Trigger Point Release Intensity/Depth Moderate Body Position Sitting Rhombiods Body Location B Romboids Mobilization Type Strumming,Sustained Pressure, Trigger Point Release Body Position Sitting SCM Body Location B SCM Mobilization Type Myofascial Release,Strumming Body Position Supine Suboccipitals Body Location B Suboccipitals Mobilization Type Strumming,Sustained Pressure Body Position Supine Upper Trap Body Location B upper trap Mobilization Type Strain/Counterstrain,Strumming ,Sustained Pressure,Trigger Point Release Body Position Supine Joint Mobilizations Cervical Joint C3-7 Direction P->A Grade III Manual Traction Cervical Details Cervical Traction Body Position Supine PT-OP-T Assessment and Plan Start: 03/18/19 15:32 Freq: Status: Active Protocol: Document 07/19/19 15:15 DCW (Rec: 07/19/19 15:59 DCW [id number]) Physical Therapy Assessment Impairments Impairments Balance,Vestibular Goals Four Impairment Pt has a five-line degradation on his Dynamic Visual Acuity Penitentiary Goal (LTG) Pt to have at most a three- line degradation on his DVA LTG Duration 07/31/19 - Improving Three Impairment Pt feels nauseated/dizzy due to bouncing while he is walking Penitentiary Goal (LTG) Pt to ambulate 10 blocks without noticeable oscillopsia LTG Duration 07/31/19 Two Impairment Pt scored a 64% disability on the Dizziness Handicapped Inventory Process Mechanic Goal (LTG) Pt to score <40% disability on DHI LTG Duration 07/31/19 One Impairment Pt does not have an appropriate home exercise program Short Term Goal (STG) Pt to be independent and compliant with an appropriate HEP STG Duration 07/31/19 Assessment Summary Assessment Pt had much less tone and less mid-back pain today with minimal increased pain when getting up on to plinth, which is typically more difficult for him. Physical Therapy Plan Frequency and Duration Frequency of Treatment 2x/Week Duration of Treatment 8 weeks Plan of Care Start Date 05/30/19 Plan of Care End Date 07/25/19 Therapeutic Interventions Therapeutic Interventions Balance Training,Manual Therapy,Soft Tissue Mobilization,Vestibular Rehabilitation Next Visit Focus/Plan Next Note Type Treatment Note Next Visit Plan VOR training, Balance training , vestibular rehabilitation, assess effectiveness of cervical manual treatment
--- NOTE | 2019-07-21 16:01 | PT.OTN ---
Current Diagnoses Other peripheral vertigo, unspecified ear (07/21/19) Physical Therapy Treatment Note PT-OP-A Visit Information Start: 03/18/19 15:32 Freq: Status: Active Protocol: Document 07/21/19 15:15 DCW (Rec: 07/21/19 16:01 DCW [id number]) Out-Patient Physical Therapy Visit Information Visit Information Visit Type Treatment Note Visit Start Time 15:15 Visit Stop Time 16:00 Total Visit Minutes 45 Visit Number 14 Number of SUPERVISOR SHIPPING Visits 0 Evaluation Information Evaluation Date 03/18/19 PT-OP-B Current Condition Start: 03/18/19 15:32 Freq: Status: Active Protocol: Document 03/18/19 14:30 DCW (Rec: 03/18/19 15:56 DCW [id number]) Current Condition History of Current Condition Onset Date 07/17/19 Current Complaints Imbalance, Visual instability History of Current Condition Pt is a 63 year old male complaining of an 8 month history of spontaneous vertigo and imbalance. Pt reports that on July 17, he was working on his van, and had a sudden onset of severe rotational vertigo lasting for two full days, including nausea and vomiting. Following this time, he reports the vertigo slowly faded, however now he is unstable, especially when his eye or closed or when he moves his head when he is walking. Pt also complains of oscillopsia when walking down the sidewalk. 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 Pt denies diplopia, dysarthria, discoordination, or decreased mentation/consciousness. Pt reports symptoms are not waxing/waning in nature. Pt denies hx of HTN, hyperlipidemia, diabetes, arrhythmia, seizure, migraines , back/neck problems, CVA, anxiety/panic disorders, depression, or excessive smoking or drinking. Treatment Goals Patient/Caregiver Goals Pt would like to be able to feel more stable when walking. Prior Functional Status Baseline Function- ADL's Independent Baseline Function- Mobility Independent Current Functional Impairments (Reported) Functional Limitations- Mobility/Gait Pt feels near-constant instability and difficulty focusing eyes when up walking around PT-OP-C Subjective Start: 03/18/19 15:32 Freq: Status: Active Protocol: Document 07/21/19 15:15 DCW (Rec: 07/21/19 16:01 DCW [id number]) OP-PT Subjective Patient Comments Patient Comments Pt feels like he has not made much progress, would like to stop therapy at this time. PT-OP-D Balance Start: 03/18/19 15:32 Freq: Status: Active Protocol: Document 05/30/19 14:30 DCW (Rec: 05/30/19 14:56 DCW [id number]) Balance Tests CTSIB CTSIB Position 1 Mild Sway CTSIB Position 2 Mild Sway CTSIB Position 3 Mild Sway CTSIB Position 4 Mild Sway CTSIB Position 5 Moderate Sway CTSIB Position 6 Mild Sway PT-OP-F Manual Assessment Start: 05/30/19 14:57 Freq: Status: Active Protocol: Document 05/30/19 14:30 DCW (Rec: 05/30/19 15:13 DCW [id number]) Manual Assessments Soft Tissue Assessment Soft Tissue Mobility Assessment Moderate tone along R upper trap and scalenes, bilateral suboccipitals Joint Mobility Assessment Joint Mobility Assessment Moderate limitations to cervical ROM, extension 32 degrees, rotation bilaterally 52 degrees Tenderness along C4 PT-OP-O Vestibular Start: 03/18/19 15:32 Freq: Status: Active Protocol: Document 05/30/19 14:30 DCW (Rec: 05/30/19 14:56 DCW [id number]) Vestibular Assessment Visual Testing Heave Test Positive Left Thrust Head Positive Left DVA (Line Degradation) 4 Vestibular Function Tests CTSIB Position 1 Mild Sway CTSIB Position 2 Mild Sway CTSIB Position 3 Mild Sway CTSIB Position 4 Mild Sway CTSIB Position 5 Moderate Sway CTSIB Position 6 Mild Sway PT-OP-Q Treatments Start: 03/18/19 15:32 Freq: Status: Active Protocol: Document 07/21/19 15:15 DCW (Rec: 07/21/19 16:01 DCW [id number]) Manual Therapy Treatment Soft Tissue Mobilization Paraspinals Body Location Cervical Paraspinals Mobilization Type Strumming,Sustained Pressure, Trigger Point Release Intensity/Depth Moderate Body Position Sitting Rhombiods Body Location B Romboids Mobilization Type Strumming,Sustained Pressure, Trigger Point Release Body Position Sitting SCM Body Location B SCM Mobilization Type Myofascial Release,Strumming Body Position Supine Suboccipitals Body Location B Suboccipitals Mobilization Type Strumming,Sustained Pressure Body Position Supine Upper Trap Body Location B upper trap Mobilization Type Strain/Counterstrain,Strumming ,Sustained Pressure,Trigger Point Release Body Position Supine Joint Mobilizations Cervical Joint C3-7 Direction P->A Grade III Manual Traction Cervical Details Cervical Traction Body Position Supine PT-OP-T Assessment and Plan Start: 03/18/19 15:32 Freq: Status: Active Protocol: Document 07/21/19 15:15 DCW (Rec: 07/21/19 16:01 DCW [id number]) Physical Therapy Assessment Impairments Impairments Balance,Vestibular Goals Four Impairment Pt has a five-line degradation on his Dynamic Visual Acuity Import/Export Administrator Goal (LTG) Pt to have at most a three- line degradation on his DVA LTG Duration 07/31/19 - Improving Three Impairment Pt feels nauseated/dizzy due to bouncing while he is walking Import/Export Administrator Goal (LTG) Pt to ambulate 10 blocks without noticeable oscillopsia LTG Duration 07/31/19 Two Impairment Pt scored a 64% disability on the Dizziness Handicapped Inventory Import/Export Administrator Goal (LTG) Pt to score <40% disability on DHI LTG Duration 07/31/19 One Impairment Pt does not have an appropriate home exercise program Short Term Goal (STG) Pt to be independent and compliant with an appropriate HEP STG Duration 07/31/19 Assessment Summary Assessment Pt feels the issue which originally brought him into PT , the imbalance/dizziness, has not changed much, and pt feels it would be best to stop therapy at this time. Pt would, however prefer to keep his chart open for another month, just in case he feels like he has lost progress and would like to return. If pt does not schedule any follow- up visits in the next month, he will be discharged. Physical Therapy Plan Frequency and Duration Frequency of Treatment 2x/Week Duration of Treatment 8 weeks Plan of Care Start Date 05/30/19 Plan of Care End Date 07/25/19 Therapeutic Interventions Therapeutic Interventions Balance Training,Manual Therapy,Soft Tissue Mobilization,Vestibular Rehabilitation Next Visit Focus/Plan Next Note Type Treatment Note Next Visit Plan VOR training, Balance training , vestibular rehabilitation, assess effectiveness of cervical manual treatment
--- NOTE | 2019-08-29 15:42 | PT.OPDS ---
Current Diagnoses Other peripheral vertigo, unspecified ear (07/21/19) Visit Care Team Role Provider Type Meche Khoury DO Primary Care Provider Non-Staff Specialty: Medical Address: [address] [place] [address], [id number] Email: Paramjit Forrester MD Attending Provider Physician Specialty: Ear, Nose, Throat Address: [address] [place] [address], [id number] Email: [email or web address] Visit Number Visit Number 14 Discharge Summary PT-OP-B Current Condition Start: 03/18/19 15:32 Freq: Status: Active Protocol: Document 03/18/19 14:30 DCW (Rec: 03/18/19 15:56 DCW [id number]) Current Condition History of Current Condition Onset Date 07/17/19 Current Complaints Imbalance, Visual instability History of Current Condition Pt is a 63 year old male complaining of an 8 month history of spontaneous vertigo and imbalance. Pt reports that on July 17, he was working on his van, and had a sudden onset of severe rotational vertigo lasting for two full days, including nausea and vomiting. Following this time, he reports the vertigo slowly faded, however now he is unstable, especially when his eye or closed or when he moves his head when he is walking. Pt also complains of oscillopsia when walking down the sidewalk. 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 Pt denies diplopia, dysarthria, discoordination, or decreased mentation/consciousness. Pt reports symptoms are not waxing/waning in nature. Pt denies hx of HTN, hyperlipidemia, diabetes, arrhythmia, seizure, migraines , back/neck problems, CVA, anxiety/panic disorders, depression, or excessive smoking or drinking. Treatment Goals Patient/Caregiver Goals Pt would like to be able to feel more stable when walking. Prior Functional Status Baseline Function- ADL's Independent Baseline Function- Mobility Independent Current Functional Impairments (Reported) Functional Limitations- Mobility/Gait Pt feels near-constant instability and difficulty focusing eyes when up walking around PT-OP-C Subjective Start: 03/18/19 15:32 Freq: Status: Active Protocol: Document 07/21/19 15:15 DCW (Rec: 07/21/19 16:01 DCW [id number]) OP-PT Subjective Patient Comments Patient Comments Pt feels like he has not made much progress, would like to stop therapy at this time. PT-OP-D Balance Start: 03/18/19 15:32 Freq: Status: Active Protocol: Document 05/30/19 14:30 DCW (Rec: 05/30/19 14:56 DCW [id number]) Balance Tests CTSIB CTSIB Position 1 Mild Sway CTSIB Position 2 Mild Sway CTSIB Position 3 Mild Sway CTSIB Position 4 Mild Sway CTSIB Position 5 Moderate Sway CTSIB Position 6 Mild Sway PT-OP-F Manual Assessment Start: 05/30/19 14:57 Freq: Status: Active Protocol: Document 05/30/19 14:30 DCW (Rec: 05/30/19 15:13 DCW [id number]) Manual Assessments Soft Tissue Assessment Soft Tissue Mobility Assessment Moderate tone along R upper trap and scalenes, bilateral suboccipitals Joint Mobility Assessment Joint Mobility Assessment Moderate limitations to cervical ROM, extension 32 degrees, rotation bilaterally 52 degrees Tenderness along C4 PT-OP-O Vestibular Start: 03/18/19 15:32 Freq: Status: Active Protocol: Document 05/30/19 14:30 DCW (Rec: 05/30/19 14:56 DCW [id number]) Vestibular Assessment Visual Testing Heave Test Positive Left Thrust Head Positive Left DVA (Line Degradation) 4 Vestibular Function Tests CTSIB Position 1 Mild Sway CTSIB Position 2 Mild Sway CTSIB Position 3 Mild Sway CTSIB Position 4 Mild Sway CTSIB Position 5 Moderate Sway CTSIB Position 6 Mild Sway PT-OP-T Assessment and Plan Start: 03/18/19 15:32 Freq: Status: Active Protocol: Document 08/29/19 15:40 DCW (Rec: 08/29/19 15:42 DCW [id number]) Physical Therapy Assessment Goals Four Impairment Pt has a five-line degradation on his Dynamic Visual Acuity Fpc Goal (LTG) Pt to have at most a three- line degradation on his DVA LTG Duration 07/31/19 - Improving Three Impairment Pt feels nauseated/dizzy due to bouncing while he is walking Fpc Goal (LTG) Pt to ambulate 10 blocks without noticeable oscillopsia LTG Duration 07/31/19 Two Impairment Pt scored a 64% disability on the Dizziness Handicapped Inventory Allergist Goal (LTG) Pt to score <40% disability on DHI LTG Duration 07/31/19 One Impairment Pt does not have an appropriate home exercise program Short Term Goal (STG) Pt to be independent and compliant with an appropriate HEP STG Duration 07/31/19 Assessment Summary Assessment Pt has made minimal overall progress with his imbalance. At pt's last appointment, he felt that he would probably discharge, but wanted to have his chart left open for one month, just in case he needed to return. Pt has now not been seen in more than one month, and will be discharged from skilled therapy at this time. Physical Therapy Plan Frequency and Duration Frequency of Treatment 2x/Week Duration of Treatment 8 weeks Plan of Care Start Date 05/30/19 Plan of Care End Date 07/25/19 Discharge Physical Therapy Discharge Reasons Plateau in Progress Next Visit Focus/Plan Next Note Type Discharge Summary
== END 2019-09-15 10:51 | disposition home or self-care (01) ==
LOC: PHYS 15:15
PROVIDERS: PCP Family Medicine; Visit Provider Otolaryngology
DX: H81.399 Other peripheral vertigo, unspecified ear (principal)
CPT/HCPCS: 97110; 97112; 97140; 97162